=== PATIENT | female | born 1950 | race Asian ===

== ENCOUNTER → 2019-08-12 | Day surgery (SDC) | payer MEDICARE ==
[~2019-08-12] MED LIST: ALPHA LIPOIC A300 MG PO; ASPIR 8181 MG PO; ATORVASTATIN CA20 MG PO; BALANCED SALT SOLN (OPTH) 15 ML BTL IO ONE; CARVEDILOL12.5 MG PO; CO Q-10200 MG PO; CYCLOPENTOLATE HCL 1% OPTH SOLN 2ML BTL ONE; EPINEPHRINE HCL 1:1000 1ML 1 MG/ML AMP ONE; GLIMEPIRIDE2 MG PO; LIDOCAINE HCL-PF 4% 40 MG/1 ML 5ML AMP ONE; MIDAZOLAM HCL 2 MG/2 ML VIAL ONE; MOXIFLOXACIN HCL(OPTH) 3 ML BTL ONE; PHENYLEPHRINE HCL 2 ML DROPS ONE; PLAVIX75 MG PO; POVIDONE IODINE 5% (OPTH) 30 ML BTL ONE; RENA-VITE TABL0.8 MG PO; SODIUM CHLORIDE 0.9% 500ML 500 ML ONE; TROPICAMIDE 1% OPTH SOLN 3ML ONE; TUMS ULTRA400 MG PO; VITAMIN B COMP1 EACH PO
--- OUTSIDE RECORDS SUMMARY | 2019-08-12 05:44 | XMS REPORT ---
[facility] Address Unknown Phone Unavailable Care Team Providers Care Stem Maker Name Role Phone Unavailable Unavailable Payers Payer Name Policy Type Policy Number Effective Date Expiration Date Problems This patient has no known problems. Allergies, Adverse Reactions, Alerts Allergy Name Allergy Type Status Severity Reaction(s) Onset Date Inactive Date Treating Clinician Comments hydrocodone DA Active [place] 2015-02-07 00:00:00 sulfadiazine DA Active [place] 2015-02-07 00:00:00 Medications This patient has no known medications. Encounters Start Date/Time End Date/Time Encounter Type Admission Type Attending Clinicians Care Facility Care Department Encounter ID 2019-08-28 00:00:00 Inpatient [facility] [id number] 2018-08-29 12:52:49 Inpatient [facility] [id number] 2018-08-22 10:26:53 Inpatient [facility] [id number] 2018-08-19 00:00:00 2018-08-19 00:00:00 Outpatient [facility] [id number] 2018-07-25 13:39:02 2018-07-25 13:39:02 Outpatient [facility] [id number] 2018-07-25 00:00:00 2018-07-25 00:00:00 Outpatient [facility] [id number] 2017-10-18 00:00:00 2017-10-18 00:00:00 Outpatient [facility] [id number] 2017-08-02 13:14:20 2017-08-02 13:14:20 Outpatient [facility] [id number] 2017-07-19 09:13:05 2017-07-19 09:13:05 Outpatient [facility] [id number] Results Test Description Test Time Test Comments Text Results Atomic Results Result Comments RAD, CHEST, 2 VIEWS 2019-07-31 17:33:00 Reason for Exam:->R05 FINAL REPORT INDICATION: R05 COMPARISON: None. TECHNIQUE: Chest radiograph, two views, PA and lateral. FINDINGS / IMPRESSION:Right lower lung questionable opacity, may represent pneumonia, or may represent normal glandular right breast tissue. Patient is status post left mastectomy. Coronary artery stent is noted. There is no pneumothorax or pleural effusion. No pulmonary edema is demonstrated. Osseous structures unremarkable. Signed: Manan Greene [facility] Verified Date/Time: 07/31/2019 17:33:28 Reading Location: [facility] Mammo Reading Room
[2019-08-12 07:46] LABS: BASOPHILS # (AUTO) 0.1 (0.0-0.1); BASOPHILS % 0.5 % (0.0-1.0); EOSINOPHILS # (AUTO) 0.6 (0.0-0.4); EOSINOPHILS % 5.6 % (0.0-6.0); HEMATOCRIT 33.1 % (34.2-44.1); HEMOGLOBIN 10.5 g/dL (12.0-16.0); LYMPHOCYTES # (AUTO) 1.9 (1.0-3.2); LYMPHOCYTES % 17.1 % (18.0-39.1); MEAN CORPUSCULAR HEMOGLOBIN 29.3 pg (28-32); MEAN CORPUSCULAR HGB CONC 31.7 g/dL (31-35); MEAN CORPUSCULAR VOLUME 92.5 fL (81-99); MONOCYTES % 9.3 % (4.4-11.3); NEUTROPHILS # (AUTO) 7.4 (2.1-6.9); NEUTROPHILS % 67.1 % (38.7-80.0); PLATELET COUNT 239 x10e3/uL (140-360); RED BLOOD COUNT 3.58 x10e6/uL (3.6-5.1); RED CELL DISTRIBUTION WIDTH 13.6 % (11.7-14.4)
[2019-08-12 07:52] LABS: ANION GAP 19.1 mmol/L (8-16); CREATININE, SERUM 5.16 mg/dL (0.57-1.11); POTASSIUM 4.1 mmol/L (3.5-5.1)
[2019-08-12 09:20] VITALS: BP 158/83
== END | disposition home or self-care (01) ==
LOC: OR 05:33
PROVIDERS: ATTEND Ophthalmology
DX: H25.811 Combined forms of age-related cataract, right eye (principal); I25.10 Atherosclerotic heart disease of native coronary artery without angina pectoris; I25.2 Old myocardial infarction; E11.22 Type 2 diabetes mellitus with diabetic chronic kidney disease; N18.6 End stage renal disease; Z88.6 Allergy status to analgesic agent; Z88.2 Allergy status to sulfonamides; Z88.8 Allergy status to other drugs, medicaments and biological substances; Z01.810 Encounter for preprocedural cardiovascular examination; Z79.02 Long term (current) use of antithrombotics/antiplatelets; Z79.82 Long term (current) use of aspirin; Z99.2 Dependence on renal dialysis; Z95.5 Presence of coronary angioplasty implant and graft
CPT/HCPCS: 36415; 66982; 80048; 82948; 85025; 93005; J0171; J2250; J7040; V2632